=== PATIENT | female | born 1960 | race Hispanic/Latino ===

== ENCOUNTER 2017-04-19 15:38 | Outpatient (CLI) | payer BC ==
[~2017-04-19 15:38] MED LIST: Gadobenate Dimeglumine 529 MG/1 ML (20ML VIAL) ONE
--- NOTE | 2017-04-20 09:07 | MRI ---
PRE AND POSTCONTRAST ENHANCED MRI OF BRAIN AND INTERNAL AUDITORY CANALS: Date: 04/19/17 HISTORY: Patient with left-sided hearing loss for several years, with recent onset worsening right-sided heari ng loss. FINDINGS: Pre and postcontrast enhanced multiplanar, multisequence MRI of brain and IACs obtained. There is a giant cisterna magna present. The brain is unremarkable. No evidence of intracranial masses, hemorrhages, strokes, or contusions se en. No abnormal areas of contrast enhancement seen. No evidence of masses or lesions seen in the inte rnal auditory canals. Vestibules and semicircular canals are unremarkable. No significant evidence of skull base masses or lesions seen. IMPRESSION: Congenital enlarged cisterna magna. Otherwise unremarkable pre and postcontrast enhanced MRI of the b rain. POS: YURY
== END 2017-04-19 15:39 | disposition home or self-care (01) ==
LOC: MRI 15:38
PROVIDERS: ATTEND Otolaryngology Plastic Surgery within the Head & Neck
DX: H90.41 Sensorineural hearing loss, unilateral, right ear, with unrestricted hearing on the contralateral side (principal); R26.81 Unsteadiness on feet; Q04.8 Other specified congenital malformations of brain
CPT/HCPCS: 70553; A9579

== ENCOUNTER 2017-12-28 13:23 | Outpatient (CLI) | payer BC | END 2017-12-28 13:24 | disposition home or self-care (01) | LOC: BICMAMMO 13:23 | PROVIDERS: ATTEND Family Medicine | DX: Z12.31 Encounter for screening mammogram for malignant neoplasm of breast (principal); Z13.820 Encounter for screening for osteoporosis; M85.88 Other specified disorders of bone density and structure, other site | CPT/HCPCS: 77063; 77067; 77080 ==

== ENCOUNTER 2018-02-01 13:20 | Outpatient (CLI) | payer BC ==
[2018-02-01] MEDS ORDERED: ISOVUE-370 76%-LOCM 1 ML ONE (13:28)
--- NOTE | 2018-02-01 17:35 | CT ---
CT ABDOMEN WITH AND WITHOUT IV CONTRAST CT PELVIS WITH AND WITHOUT IV CONTRAST 02/01/18 HISTORY: Microscopic hematuria. COMPARISON: None available. FINDINGS: There is minimal dependent bibasilar atelectasis. The lung bases are otherwise clear. The liver, spleen, pancreas, bilateral adrenal glands, kidneys, abdominal aorta, and incompletely dis tended urinary bladder demonstrate a normal CT appearance. No renal or ureteral calculi are seen bilaterally and there is no evidence of hydronephrosis. No enha ncing renal mass is seen. The uterus demonstrates a normal appearance. There is a 2.7 cm fluid attenuation cystic structure see n anterior to the distal aspect of the urine fundus and adjacent to the left ovary which may represen t a small left ovarian/parovarian cyst. Right adnexal structures demonstrate a normal CT appearance. No free fluid, fluid collection, or lymphadenopathy is seen in the abdomen or pelvis. Degenerative ch anges are seen in the pubic symphysis with minimal bilateral hip osteoarthritis. There is grade I ant erolisthesis of L5 on S1 with facet degenerative changes at this level. IMPRESSION: 1. No renal or ureteral calculi are seen bilaterally, and there is no hydronephrosis. 2. No enhancing renal mass is seen. No obvious filling defect is appreciated within the opacifie d portions of the renal collecting systems or ureters on delayed imaging. 3. Left ovarian/parovarian cyst. 4. Degenerative changes in the spine at the pubic symphysis. 5. Grade I anterolisthesis of L5 on S1 likely attributable to the prominent facet degenerative c hanges. POS: YURY
== END 2018-02-01 13:21 | disposition home or self-care (01) ==
LOC: BICCT 13:20
PROVIDERS: ATTEND Urology
DX: R31.29 Other microscopic hematuria (principal); N83.202 Unspecified ovarian cyst, left side; M16.0 Bilateral primary osteoarthritis of hip; M43.17 Spondylolisthesis, lumbosacral region
CPT/HCPCS: 74178

== ENCOUNTER 2019-06-13 11:26 | Outpatient (CLI) | payer BC ==
--- NOTE | 2019-06-17 14:37 | MMO ---
Bilateral MAMMO Bilat Screen [facility]. CLINICAL HISTORY: Patient is 58 years old and is seen for screening. The patient has no family history of breast cancer. The patient has no personal history of cancer. VIEWS: The views performed were: bilateral craniocaudal with tomosynthesis and bilateral mediolateral oblique with tomosynthesis. FILMS COMPARED: The present examination has been compared to prior imaging studies performed at [facility] on 06/23/2016 and 12/28/2017. This study has been interpreted with the assistance of computer-aided detection. MAMMOGRAM FINDINGS: There are scattered fibroglandular densities. There are no suspicious masses, suspicious calcifications, or new areas of architectural distortion. IMPRESSION: THERE IS NO MAMMOGRAPHIC EVIDENCE OF MALIGNANCY. A ROUTINE FOLLOW-UP MAMMOGRAM IN 1 YEAR IS RECOMMENDED. THE RESULTS OF THIS EXAM WERE SENT TO THE PATIENT. ACR BI-RADS Category 1 - Negative MAMMOGRAPHY NOTE: 1. A negative mammogram report should not delay a biopsy if a dominant of clinically suspicious mass is present. 2. Approximately 10% to 15% of breast cancers are not detected by mammography. 3. Adenosis and dense breasts may obscure an underlying neoplasm. Reported by: JUAN DICKINSON MD Electonically Signed: [id number]
== END 2019-06-13 11:27 | disposition home or self-care (01) ==
LOC: BICMAMMO 11:26
PROVIDERS: ATTEND Family Medicine
DX: Z12.31 Encounter for screening mammogram for malignant neoplasm of breast (principal)
CPT/HCPCS: 77063; 77067

== ENCOUNTER 2021-03-23 13:04 | Outpatient (CLI) | payer BC | END 2021-03-23 13:05 | disposition home or self-care (01) | LOC: BICMAMMO 13:04 | PROVIDERS: ATTEND Family Medicine | DX: Z12.31 Encounter for screening mammogram for malignant neoplasm of breast (principal) | CPT/HCPCS: 77063; 77067 ==

== ENCOUNTER 2022-06-16 12:57 | Outpatient (CLI) | payer BC | END 2022-06-16 12:58 | disposition home or self-care (01) | LOC: BICMAMMO 12:57 | PROVIDERS: ATTEND Family Medicine | DX: Z12.31 Encounter for screening mammogram for malignant neoplasm of breast (principal) | CPT/HCPCS: 77063; 77067 ==